=== PATIENT | female | born 1930 | race Caucasian/White ===

== ENCOUNTER → 2016-07-03 | Outpatient (CLI) | payer MEDICARE ==
[~2016-07-03] MED LIST: AMIO200T7 PO; APIX5TAB PO; CARV3.12 PO; CHOL200014 PO; FURO40TA5 PO; LEVO75TA4 PO; LOSA50TA52 PO; MULT-806 PO; POTA10CA37 PO
== END ==
LOC: IMA 13:08
PROVIDERS: ATTEND Family Medicine
DX: N91.2 Amenorrhea, unspecified (principal); M81.0 Age-related osteoporosis without current pathological fracture